=== PATIENT | female | born 1975 | race Asian ===

== ENCOUNTER 2018-11-12 08:40 | Observation (INO) | payer OTHER ==
[2018-10-15 17:14] LABS: BASOPHILS % 0.2 % (0.0-1.0); EOSINOPHILS % 0.7 % (0.0-6.0); HEMATOCRIT 39.9 % (34.2-44.1); HEMOGLOBIN 13.4 g/dL (12.0-16.0); LYMPHOCYTES # (AUTO) 1.2 (1.0-3.2); LYMPHOCYTES % 27.5 % (18.0-39.1); MEAN CORPUSCULAR HEMOGLOBIN 32.6 pg (28-32); MEAN CORPUSCULAR HGB CONC 33.6 g/dL (31-35); MEAN CORPUSCULAR VOLUME 97.1 fL (81-99); MONOCYTES # (AUTO) 0.7 (0.2-0.8); MONOCYTES % 15.3 % (4.4-11.3); NEUTROPHILS # (AUTO) 2.5 (2.1-6.9); NEUTROPHILS % 56.3 % (38.7-80.0); PLATELET COUNT 235 x10e3/uL (140-360); RED BLOOD COUNT 4.11 x10e6/uL (3.6-5.1); RED CELL DISTRIBUTION WIDTH 12.3 % (11.7-14.4)
[2018-10-15 17:41] LABS: ALANINE AMINOTRANSFERASE 18 IU/L (0-55); ALBUMIN 3.7 g/dL (3.5-5.0); ALBUMIN/GLOBULIN RATIO 0.9 (0.8-2.0); ALKALINE PHOSPHATASE 75 IU/L (40-150); BLOOD UREA NITROGEN 7 mg/dL (7-26); BUN/CREATININE RATIO 10 (6-25); CALCIUM 8.9 mg/dL (8.4-10.2); CARBON DIOXIDE 21 mmol/L (22-29); CHLORIDE 105 mmol/L (98-107); CREATININE, SERUM 0.73 mg/dL (0.57-1.11); EST GLOMERULAR FILTRATION RATE > 60 ML/MIN (60-); GLUCOSE 92 mg/dL (74-118); SODIUM 135 mmol/L (136-145)
[~2018-11-12] VITALS: Ht 160 cm; Wt 51.7 kg
[~2018-11-12 08:40] MED LIST: BUPIVACAINE 0.5%/EPI 30 ML SDV INJ ONE; METHYLENE BLUE 1% INJ 10 ML VIAL INJ ONE
[2018-11-12] MEDS ORDERED: PREDNISONE5 MG PO (08:50)
[2018-11-12] MEDS ORDERED: SODIUM CHLORIDE 0.9% 100 ML ONE ×2 (09:25→10:17)
[2018-11-12] MEDS ORDERED: CEFAZOLIN SOD 2 GM/D5W 50ML 50 ML IV ONE (09:42)
[2018-11-12] MEDS ORDERED: VASOPRESSIN INJ 20 UNIT/ML VIAL INJ ONE (10:07)
[2018-11-12] MEDS ORDERED: FENTANYL CITRATE/PF 100MCG/2 ML INJ ONE ×2 (12:51→18:46)
[2018-11-12] MEDS ORDERED: KETOROLAC TROMETHAMINE 30 MG/ML VIAL IV PRN (14:45)
[2018-11-12] MEDS ORDERED: MEPERIDINE HCL INJ 25 MG/ML VIAL IV PRN (14:45)
[2018-11-12] MEDS ORDERED: DEXTROSE 5%/LACTATED RINGERS 1,000 ML IV ONE (14:45)
[2018-11-12] MEDS ORDERED: ACETAMINOPHEN/CODEINE 300MG - 30MG TAB PO PRN (14:45)
--- NOTE | 2018-11-12 15:00 | NUR ---
RECEIVED REPORT FROM MAGO IN RECOVERY AT THIS TIME
[2018-11-12 15:30] VITALS: BP 150/72
--- NOTE | 2018-11-12 15:30 | NUR ---
PT ARRIVED TO FLOOR AA0X3. PT IS DROWSY FROM ANESTHESIA AT THIS TIME. AWOKEN EASILY WITH VOICE. PT STATES PAIN IS A 6/10. RECEIVED PAIN MED IN REC RIGHT BEFORE TRANSFER. PT ABD SITE IS CLEAN . PAD AND PANTIES IN PLACE. PT HAS A RIGHT FA 20 WIT HD5LR AT 150. PT IS TO RECEIVE ON BAG AT 150CC.HR TIMES ONE. PER RECOVERY NURSE PATT. CALL LIGHT LEFT WITHIN REACH, BED WHEELS LOCKED, INSTRUCTED TO CALL FOR ASSISTANCE IF NEEDED
[2018-11-12 16:09] VITALS: BP 150/72
--- NOTE | 2018-11-12 16:20 | NUR ---
PAGED MD KRISHNAN FOR ORDERS ON HOME MED RENEWAL . PT WANTS RENEWAL OF PREDNISONE . AWAITING FOR CALL BACK
[2018-11-12 16:58] VITALS: BP 150/72
--- NOTE | 2018-11-12 17:00 | NUR ---
PT VOIDED IN TOILET AFTER DEUTSCH REMOVAL
--- NOTE | 2018-11-12 18:25 | NUR ---
SPOKE WITH MD KRISHNAN REGARDING HOME MED RENEWAL. MD MARTINEZ RENEWAL
[2018-11-12] MEDS ORDERED: SEVOFLURANE INHAL SOLN 250 ML PEN BTL ONE (18:26)
[2018-11-12] MEDS ORDERED: GLYCOPYRROLATE INJ 1MG/ 5 ML SYR ONE (18:26)
[2018-11-12] MEDS ORDERED: ACETAMINOPHEN 1000 MG/100 ML IV ONE (18:26)
[2018-11-12] MEDS ORDERED: KETOROLAC TROMETHAMINE 30 MG/ML VIAL ONE (18:26)
[2018-11-12] MEDS ORDERED: PROPOFOL IV EMULSION 10 MG/ML 20 ML VIAL ONE (18:26)
[2018-11-12] MEDS ORDERED: ONDANSETRON HCL INJ 2 MG/ML VIAL ONE (18:26)
[2018-11-12] MEDS ORDERED: ROCURONIUM BROMIDE 10 MG/ML 5ML VIAL ONE (18:26)
[2018-11-12] MEDS ORDERED: LIDOCAINE HCL 2% LOCAL INJ 5 ML SDV VIAL INJ ONE (18:26)
[2018-11-12] MEDS ORDERED: NEOSTIGMINE 5 MG/5ML SYR ONE (18:26)
[2018-11-12] MEDS ORDERED: DEXAMETHASONE SOD PHOS INJ 4 MG/ML VIAL ONE (18:26)
[2018-11-12] MEDS ORDERED: MIDAZOLAM HCL 2 MG/2 ML VIAL ONE (18:46)
[2018-11-12] MEDS ORDERED: PREDNISONE 5 MG TAB PO NR (19:30)
--- NOTE | 2018-11-12 19:30 | NUR ---
REPORT TAKEN FROM AM RN.ASSESSMENT DONE.AA0X4.NO RESP.DISTRESS.ASSISTED IN THE TOILETTE.VOIDED.PAIN VOICED 02/12.REFUSED PAIN MEDICINE.BED LOCKED AN DIN LOWEST POSITION.PHONE AND CALL LIGHT WITHIN REACH.INSTRUCTED TO CALL FOR ASSISTANCE NEEDED.
[2018-11-12 20:00] VITALS: BP 139/67
--- NOTE | 2018-11-12 23:58 | NUR ---
AMBULATES.VOIDED.INCISION SITE IS DRY AND INTACT.
[2018-11-13] VITALS: BP 159/68
[2018-11-13 04:00] VITALS: BP 133/73
--- NOTE | 2018-11-13 04:55 | NUR ---
HAS C/O SHOULDER PAIN.DEMAROL 25 MG IV GIVEN.
[2018-11-13] MEDS ORDERED: PREDNISONE 5 MG TAB PO SCH (09:00)
[2018-11-13 09:49] VITALS: BP 128/59
[2018-11-13 10:00] VITALS: BP 128/59
--- NOTE | 2018-11-13 10:00 | NUR ---
assessment complete no distress noted, updated on poc voiced understanding, denies pain at this time, dsg to abdomen c/d/i, r hand 20g no ss of infiltration noted, no other co voiced call light in reach will continue ot monitor
[2018-11-13 11:52] VITALS: BP 142/65
[2018-11-13] MEDS ORDERED: TYLENOL WITH C1 EACH PO (12:05)
--- NOTE | 2018-11-13 12:52 | Operative Report ---
DATE OF PROCEDURE: PREOPERATIVE DIAGNOSIS: Requesting reversal of tubal ligation. POSTOPERATIVE DIAGNOSIS: Requesting reversal of tubal ligation. OPERATION PERFORMED: Bilateral fimbrioplasty. COMPLICATIONS: None. ESTIMATED BLOOD LOSS: 50 mL. PROCEDURE: The patient was taken to the OR where general anesthesia was placed. She was prepped and draped in the normal sterile fashion and placed in the dorsal lithotomy position. The bladder was emptied with a Rosenbaum's catheter, and a HUMI self-retaining uterine manipulator was passed through the cervix into the uterine cavity. Balloon was inflated. A Pfannenstiel skin incision was made with the scalpel and taken all the way down to the fascia, which was nicked in the midline and opened along the line of the incision using curved Rene scissors. The upper and lower flaps of the fascia were dissected from the underlying muscles using both sharp and blunt dissection. The midline was identified and the peritoneum entered using the stretch of two fingers. retractor was placed inside the pelvis, and the bowel was packed with moist laps in the upper abdomen. Uterus was identified and the tubes. The following findings were noted. A left paratubal cyst of about 4 cm, which was drained. Right and left ovaries are normal. The left tube showed two Falope rings, one at the ampullary region and the other at the fimbrioampullary region. The right tube showed one Falope ring at the fimbrioampullary region. Reversal of tubal ligation was performed by removing the blocked ends of the tube on the left and injecting diluted methylene blue, which showed free flow out from the medial part of the fallopian tube. However, the mesosalpinx was injected with diluted Pitressin 1 ampule over 100 mL of saline, and 10 mL was injected in the mesosalpinx of the left tube. A lacrimal duct dilator was passed through the fimbriated end of the left tube and passed through the ampullary part of the proximal end of the tube, and approximation of the ends using Prolene 6-0 was performed without difficulty. Injection of the dye showed leakage at the junction, and there was no free methylene blue coming from the fimbriated end, and accordingly decision was made to open the anastomosis again do a fimbrioplasty. The fimbrioplasty was performed by doing a cruciate incision on the ampullary region of the left tube, and the four leaves of the tubes were sutured to the external surface of the adjacent fallopian portion using Prolene 6-0 to keep the upper region opened. Hemostasis was found to be adequate. The following injection of the methylene blue showed clear dye coming from the left tube. Now attention was made to the right tube where the fimbrial end was completely damaged, and accordingly decision was made to carry on with a fimbrioplasty of the right tube, doing the same procedure as on the left side. A cruciate incision on the ampullary region was performed, and the ends of the tube were stitched to the external surface of the adjacent tube using Prolene 6-0. Hemostasis was found to be adequate. The injection of the dye again showed free methylene blue dye coming from the new fimbria of both right and left tubes. At that stage, the procedure was abandoned and suction irrigation of the peritoneal cavity with warm saline was performed. Instruments were removed from the abdomen and the rectus fascia approximated using PDS 0 continuous stitch, and the skin was closed with 4-0 Vicryl, 4-0 subcuticular and Dermabond applied. Patient tolerated the procedure well. Laps, instrument and needle count was correct x2 at the end of the procedure. Job#: [id number] EV
== END 2018-11-13 13:02 | disposition home or self-care (01) ==
LOC: OR 08:40 → PACU V 14:43 → MED/SURG 15:16
PROVIDERS: ADMIT Obstetrics & Gynecology; ATTEND Obstetrics & Gynecology
DX: Z31.0 Encounter for reversal of previous sterilization (principal); N97.9 Female infertility, unspecified; M32.9 Systemic lupus erythematosus, unspecified; Z86.19 Personal history of other infectious and parasitic diseases; Z88.2 Allergy status to sulfonamides; Z01.812 Encounter for preprocedural laboratory examination
CPT/HCPCS: 36415; 58750; 58760; 80053; 81025; 84702; 85025; G0378 ×2; J0131; J0690; J1100; J1885; J2001; J2175; J2250; J2405; J2704; J3490; J7050; J7121; J7512 ×2